=== PATIENT | male | born 1945 | race Asian ===

== ENCOUNTER 2018-12-10 07:00 | Emergency (ER) | payer OTHER ==
[~2018-12-10] VITALS: Ht 165.1 cm; Wt 61.2 kg
[2018-12-10 07:15] VITALS: BP 138/71
--- NOTE | 2018-12-10 07:41 | Emergency Room Report ---
History of Present Illness General Chief Complaint: Laceration Source: Patient Present Illness HPI Patient states that he was at work and a coworker was pushing a metal cart and it hit him in the left side of the face. He denies loss of consciousness. He states that he has some soreness but otherwise has no pain. He denies headache or neck pain. He denies change in vision or eye pain. He has no other complaints. Allergies: Coded Allergies: No Known Allergies (Unverified , 12/10/18) Patient History Past Medical History: see triage record, DM, HTN Social History: Denies: smoking, alcohol use, drug use Reviewed Nursing Documentation: PMH: Agreed; PSxH: Agreed Nursing Documentation-PMH Hx Hypertension: Yes Hx Diabetes: Yes Review of Systems All Other Systems: negative except mentioned in HPI Physical Exam Vital Signs Date Time Temp Pulse Resp B/P (MAP) Pulse Ox O2 Delivery O2 Flow Rate FiO2 12/10/18 07:02 97.5 70 16 138/71 (93) 97 Room Air Sp02 EP Interpretation: reviewed, normal General Appearance: no apparent distress, alert, GCS 15, non-toxic Head: normocephalic, other - L. Face: 1 cm lateral to L. eye with 1 cm superficial non-gaping laceration. +ecchymosis under L. lid. Eyes: bilateral eye normal inspection, bilateral eye PERRL, bilateral eye EOMI ENT: hearing grossly normal, normal pharynx, no angioedema, normal voice Neck: full range of motion, supple/symm/no masses Respiratory: normal breath sounds, no respiratory distress, no retraction, no accessory muscle use, speaking full sentences Rectal: deferred Musculoskeletal: back normal, gait/station normal, normal range of motion Neurologic: alert, oriented x3, responsive, motor strength/tone normal, sensory intact, speech normal Psychiatric: judgement/insight normal, memory normal, mood/affect normal, no suicidal/homicidal ideation Skin: laceration - See above in head exam. See photo in EMR Procedures Laceration/Wound Repair Laceration/Wound Repair : Consent: Verbal Wound Location: face Wound's Depth, Shape: superficial Wound Length (cm): 1 Wound Explored: clean Irrigated w/ Saline (ccs): 400 Wound Repaired With: Dermabond Patient Tolerated: Well Complications: None Medical Decision Making Diagnostic Impression: Primary Impression: Laceration Additional Impression: Traumatic periorbital ecchymosis of left eye ER Course This patient has a superficial laceration just lateral to the left eye on the left face. The laceration was well approximated and superficial so I used Dermabond for repair with an excellent outcome. The patient also has some traumatic periorbital ecchymosis. The patient has no bony tenderness and so I did not feel that this patient needed imaging. Overall the injury appears superficial. There is no eye/orbital involvement. The patient is given close return precautions and follow-up instructions. Last Vital Signs Date Time Temp Pulse Resp B/P (MAP) Pulse Ox O2 Delivery O2 Flow Rate FiO2 12/10/18 07:15 97.5 78 16 138/71 97 Room Air Status: improved Disposition: HOME, SELF-CARE Condition: Improved Patient Instructions: Nonsutured Laceration Care, Laceration Care, Adult Gay Long DO Dec 10, 2018 07:41
[2018-12-10 07:50] VITALS: BP 138/71
== END 2018-12-10 07:50 | disposition home or self-care (01) ==
LOC: EMR 07:48
DX: S01.81XA Laceration without foreign body of other part of head, initial encounter (principal); S00.12XA Contusion of left eyelid and periocular area, initial encounter; I10 Essential (primary) hypertension; E11.9 Type 2 diabetes mellitus without complications; W20.8XXA Other cause of strike by thrown, projected or falling object, initial encounter; Y92.59 Other trade areas as the place of occurrence of the external cause; Y99.0 Civilian activity done for income or pay
CPT/HCPCS: 99283